=== PATIENT | male | born 1975 | race Caucasian/White ===

== ENCOUNTER 2016-07-03 23:50 | Emergency (ER) | payer OTHER ==
[2016-07-03 23:52] VITALS: BP 163/84; PULSE 104; RESP 16; TEMP 97.8; O2SAT 97
== END 2016-07-04 00:15 | disposition left against medical advice (07) ==
LOC: NED 23:50
DX: J11.1 Influenza due to unidentified influenza virus with other respiratory manifestations (principal)
CPT/HCPCS: 99281